=== PATIENT | male | born 1945 | race Caucasian/White ===

== ENCOUNTER 2017-02-02 07:26 | Day surgery (SDC) | payer MEDICARE, OTHER ==
[~2017-02-02] VITALS: Ht 176.5 cm; Wt 82.2 kg
[~2017-02-02 07:26] MED LIST: EYE VITAMIN-MI1 EACH PO; FLONASE 50 MCG/16 GM NOSE; MOMETASONE FURO45 GM TOP; MULTI VITAMIN1 EACH PO; PRINIVIL OR ZES10 MG PO
== END 2017-02-02 10:30 | disposition disaster alternative care site (69) ==
LOC: GEND 07:26 → GPOC 07:30 → GEND 10:30
PROC: 0DBF8ZX Excision of Right Large Intestine, Via Natural or Artificial Opening Endoscopic, Diagnostic (ICD-10-PCS; principal; 2017-02-02)
DX: Z12.11 Encounter for screening for malignant neoplasm of colon (principal); D12.6 Benign neoplasm of colon, unspecified; I10 Essential (primary) hypertension; R00.2 Palpitations; Z88.8 Allergy status to other drugs, medicaments and biological substances; Z88.2 Allergy status to sulfonamides; K21.9 Gastro-esophageal reflux disease without esophagitis; E78.5 Hyperlipidemia, unspecified; N31.8 Other neuromuscular dysfunction of bladder; Z90.49 Acquired absence of other specified parts of digestive tract; Z79.899 Other long term (current) drug therapy; Z79.82 Long term (current) use of aspirin; Z98.890 Other specified postprocedural states
CPT/HCPCS: J7030

== ENCOUNTER → 2017-02-07 | Outpatient (CLI) | payer MEDICARE, OTHER ==
--- NOTE | ~2017-02-07 | PUL ---
PATIENT'S NAME: MELCHOR KNOX [facility] AGE: 71 Y [address] ROOM: [place] [address] LOCATION: [facility] ADMIT DATE: 02/07/2017 Pulmonary DISCHARGE DATE: FAMILY PHYSICIAN: Ramez Way MD ATTENDING PHYSICIAN: Ramez Way NAME OF PROCEDURE: Sleep Study DATE OF PROCEDURE: 02/07/17 TECH: Jordan Singleton [facility] SUMMARY: Patient underwent home sleep testing using a type III device and was studied for a total of 8 hours 21 minute. In that time there were 20 obstructive apneas, 2 central apneas and 79 hypopneas for an apnea/hypopnea index mildly elevated at 12.1 events per hour. The supine apnea/hypopnea index was 22 events per hour. The non supine AHI was less than 5 events per hour. Oxygen saturations ranged from 82%-91%. Heart rate ranged from 57 to 73 beats per minute. IMPRESSION: Mild essentially positional obstructive sleep apnea. PLAN: Patient will receive results from the ordering provider. MD RONEN VALLEJO/ /[id number] dtt: 02/27/17 0739 Cayden David E. dtd: 02/10/17 1226
== END | disposition disaster alternative care site (69) ==
LOC: GSLP 09:54
DX: G47.19 Other hypersomnia (principal); G47.33 Obstructive sleep apnea (adult) (pediatric); G47.9 Sleep disorder, unspecified
CPT/HCPCS: G0399

== ENCOUNTER → 2017-04-28 | Outpatient (CLI) | payer MEDICARE, OTHER | END | disposition disaster alternative care site (69) | LOC: LGSMG 13:31 | DX: R06.00 Dyspnea, unspecified (principal) ==

== ENCOUNTER → 2017-05-31 | Outpatient (CLI) | payer MEDICARE, OTHER ==
--- NOTE | ~2017-05-31 | ESTC ---
Cardiac Perfusion Imaging Demographics Patient Name ABILIO Swan Gender Male Patient Number [id number] Race Visit Number [id number] Ethnicity Corporate ID Room Number Accession Number [id number] Height Date of 1945 Weight Age 71 year(s) BSA Referring Physician Dandre Tipton MD BMI Interpreting Portillo Mckee Date of study 05/31/2017 Physician Supervising /SARAP Lillian VARGAS Technologist Ten Sellers MD Ordering Physician Lillian Ohara Stress A case technician Stress ECG Reading Lillian Jansen Physician A MD Marissa Gan RN Procedure Procedure Type: Nuclear Stress Test:Exercise, Cardiolite Stress Test Procedure Start time: 05/31/2017 10:25 Indications: Chest discomfort and Dyspnea. Risk Factors The patient risk factors include:former tobacco use, treated hypertension and ( years not smokin). Conclusions Summary Perfusion Images: The overall quality of the study is good. Left ventricular cavity is noted to be small on the stress and rest studies. There is no evidence of abnormal lung activity. The right ventricle is not visualized and cannot be assessed. Stress SPECT images and Rest SPECT images demonstrate homogenous tracer distribution throughout the myocardium. Gated SPECT imaging reveals normal myocardial thickening and wall motion. The left ventricular ejection fraction was calculated to be >70%. Impression ECG portion of stress test is clinically negative for ischemia by diagnostic criteria. Myocardial perfusion imaging is normal. Overall left ventricular systolic function was normal without regional wall motion abnormalities. Stress Protocols Resting ECG Normal sinus rhythm. Pre-stress physical exam: Patient assessed by Dr Snyder prior to testing. Predicted HR: 151 bpm Perceived exertion:7 ECG Findings No ECG changes suggestive of ischemia. Arrhythmias Rare PVCs Symptoms No cardiovascular symptoms with maximal exercise. Stress Interpretation Appropriate hemodynamic response to exercise. No significant ST-T wave changes with exercise. EKG portion is negative for ischemia by diagnostic criteria. The Jackson Treadmill score was 6 .This corresponds to a low risk stress test. Imaging Results Applied corrections - Motion correction applied High risk findings Summed scores - Summed stress score: 4 - Summed rest score: 2 - Summed difference score: 2 Stress ejection Ejection fraction:80 % EDV :50 ml ESV :10 ml Stroke volume :40 ml LV mass :90 gr Imaging Protocols Rest Stress Isotope:Tc99m Sestamibi IV Isotope: Tc99m Sestamibi IV Isotope dose:13.7 mCi Isotope dose:41.6 mCi Date:05/31/2017 07:41 Date:05/31/2017 11:27 Technique: SPECT Technique: Gated Supine SPECT Supine Scan Time:45-60 minutes post Scan Time:45-60 minutes post injection injection Medical History Admission Data Admission date: 05/31/2017 Admission Time: 07:18 Hospital Status: Outpatient. Signatures dtt: Jamar Snyder dtd: 05/31/17 1025 Physician Self Edit
== END | disposition disaster alternative care site (69) ==
LOC: GRAD 07:18
DX: R07.89 Other chest pain (principal); I10 Essential (primary) hypertension; R06.00 Dyspnea, unspecified; Z87.891 Personal history of nicotine dependence
CPT/HCPCS: A9500